=== PATIENT | male | born 1945 | race Caucasian/White ===

== ENCOUNTER 2023-10-27 12:50 | Emergency (ER) | payer MEDICARE, OTHER, SELFPAY ==
--- NOTE | ~2023-10-27 | XR_ITS ---
EXAMINATION: XR shoulder RT min 2V DATE: 10/27/2023 15:29 INDICATION: Right shoulder pain post fall TECHNIQUE: AP internally and externally rotated, AP oblique externally rotated and transscapular Y vi ews of the right shoulder were obtained. COMPARISON: 08/21/2004 FINDINGS: Normal alignment. No fracture. Mild glenohumeral and mild to moderate acromioclavicular osteoarthrit is. Visualized portion of the right lung is clear. Soft tissues are unremarkable. IMPRESSION: Mild right glenohumeral and mild to moderate acromioclavicular osteoarthritis. No acute osseous abnor mality. Reviewed, dictated and finalized at location A. NHOUSE SPECIALIST IMPRESSION: Mild right glenohumeral and mild to moderate acromioclavicular osteoarthritis. No acute osseous abnormality.
[2023-10-27 12:55] VITALS: BP 123/84; PULSE 111; RESP 20; TEMP 36.5; O2SAT 95
--- NOTE | 2023-10-27 15:07 | PC.NURSE ---
agree with triage assessment
--- NOTE | 2023-10-27 15:10 | PC.NURSE ---
pt denies hitting head, states fell on right shoulder on the ice
[2023-10-27 15:45] VITALS: BP 132/89; PULSE 62; RESP 16; TEMP 35.8; O2SAT 100
--- NOTE | 2023-10-27 17:23 | ED.GENADULT ---
HPI - General Adult General Chief complaint: Extremity Injury, Upper Stated complaint: right shoulder pain after fall Time Seen by Provider: 10/27/23 16:47 History of Present Illness HPI narrative: 78-year-old male presenting to the emergency department for evaluation of right shoulder pain after having a ground level fall yesterday. Patient states he slipped on the ice and landed on his shoulder. Patient did not strike his head had no loss of consciousness. Patient states he had decreased range of motion of the right shoulder so he presented to the emergency department for evaluation. Related Data Allergies Allergy/AdvReac Type Severity Reaction Status Date / Time chlorzoxazone Allergy Mild CONVULSION Verified 10/27/23 15:43 Sulfa (Sulfonamide Allergy Mild NODULE ON Verified 10/27/23 15:43 Antibiotics) SPINE Review of Systems Review of Systems: All systems reviewed & are unremarkable except as noted in HPI and below Exam Narrative: APPEARANCE: Well appearing, no pain, no distress, well-nourished. HEAD: normocephalic, atraumatic. EYES: PERRLA/EOMI, conjunctivae clear. NOSE: Normal no drainage NECK: Supple. No adenopathy, no masses. RESPIRATORY: Airway patent, respirations nonlabored. Clear to auscultation bilaterally, no rales, rhonchi, wheezing. CARDIOVASCULAR: Regular rate and rhythm without murmurs rubs or gallops. ABDOMINAL: Soft, nontender, nondistended, normal bowel sounds MUSCULOSKELETAL: Decreased active range of motion of the right shoulder, anterior shoulder tenderness to palpation NEURO: Alert. Cranial nerves II through XII intact. Grossly intact SKIN: Warm, dry. Normal Color Course Course Emergency Course: 78-year-old male presenting ED for evaluation of right shoulder pain x-ray was negative for acute fracture dislocation. Patient exam is consistent with a rotator cuff injury. Patient was placed in a sling and provided outpatient follow-up with orthopedics. Patient was advised to remove the sling when not needed and to do some [id number] exercises. Patient was comfortable with plan for discharge and close follow-up. Vital Signs Vital signs: Vital Signs Oxygen Delivery Room Air 10/27/23 12:53 Temperature 96.5 F L 10/27/23 15:45 Pulse Rate 62 10/27/23 15:45 Respiratory Rate 16 10/27/23 15:45 Blood Pressure 132/89 10/27/23 15:45 Pulse Oximetry 100 10/27/23 15:45 Oxygen Delivery Room Air 10/27/23 12:53 Medical Decision Making Differential Diagnosis Differential Diagnosis: Shoulder fracture, shoulder dislocation, shoulder strain Vital Signs Vital Signs: Vital Signs Oxygen Delivery Room Air 10/27/23 12:53 Temperature 96.5 F L 10/27/23 15:45 Pulse Rate 62 10/27/23 15:45 Respiratory Rate 16 10/27/23 15:45 Blood Pressure 132/89 10/27/23 15:45 Pulse Oximetry 100 10/27/23 15:45 Oxygen Delivery Room Air 10/27/23 12:53 Imaging Data Radiologist's impression: Impressions Shoulder X-Ray 10/27/23 15:32 IMPRESSION: Mild right glenohumeral and mild to moderate acromioclavicular osteoarthritis. No acute osseous abnormality. Discharge Plan Discharge Clinical Impression: Right shoulder strain Patient Disposition: Home, Self-Care Condition: Stable Instructions: Antibiotic Form, How to Use a Sling (ED), Shoulder Pain (ED) Additional Instructions: Tylenol for pain control. Sling as directed for comfort. Have close follow-up with Orthopedics. If you have any worsening symptoms and please call or return to the emergency department. Follow-up/Referrals: Kamille Carter APRN [Primary Care Provider] - Mauro Schulte MD [Physician] -
== END 2023-10-27 17:43 | disposition home or self-care (01) ==
PROVIDERS: Emergency Provider Emergency Medicine; PCP Nurse Practitioner Family
DX: S46.911A Strain of unspecified muscle, fascia and tendon at shoulder and upper arm level, right arm, initial encounter (principal); M19.011 Primary osteoarthritis, right shoulder; W00.0XXA Fall on same level due to ice and snow, initial encounter
CPT/HCPCS: 73030; 99283; A4565

== ENCOUNTER 2024-02-02 08:23 | Outpatient (CLI) | payer MEDICARE, SELFPAY ==
[2024-02-16 14:16] VITALS: BMI 24.2
--- NOTE | 2024-02-16 14:16 | WPDSLEEPSTUD ---
Sleep Study Date of Study: 02/02/24 Ordering Provider: Estefania Saab MD Interpreting Physician: Halle Joseph DO Sleep Study Type: Split Polysomnogram Height: 1.78 m Weight: 76.657 kg Body Mass Index: 24.2 Neck Circumference (inches): 14.75 Speer: 3 Reason for Sleep Study Snoring Sleep History The patient is a 78-year-old male that had a sleep study ordered by his belt cleaner for evaluation of sleep apnea. The patient was previously diagnosed with sleep apnea in 1991 but could not tolerate PAP therapy. The patient denies awakening from sleep short of breath. He denies awakening at night with heartburn, belching or cough. He occasionally snores and is occasionally loud enough that others complain. He rarely has trouble sleeping when he has a cold. He denies waking up gasping for air throughout the night. He occasionally has breathing problems at night observed by himself or others. He denies sweating excessively at night. He denies having heart palpitations or irregular heartbeats during the night. He rarely falls asleep during the day but never while driving. He denies sleep paralysis and cataplexy. He denies having trouble at school or work due to sleepiness. He occasionally experiences vivid dreamlike scenes upon awakening or falling asleep. He denies feeling afraid of going to sleep. He denies having nightmares. He occasionally remembers his dreams. He occasionally has thoughts racing through his mind. He rarely feels sad, depressed or anxious. He denies having muscular tension. He rarely notices parts of his body jerk. He denies kicking during the night. He denies having crawling and aching feelings in his legs but occasionally has leg pain during the night. He rarely grinds his teeth during sleep and never awakens with morning jaw pain. He denies being bothered by pain during the day and denies being awakened by pain during the night. He denies waking up feeling stiff in the morning. He denies waking up with sore or achy muscles. He denies waking up with pain in the neck, spine and other joints. He goes to bed at 11:00 p.m. on both weekdays and weekends. It takes him 30 minutes to fall asleep. He does not typically wake up throughout the night. He wakes up at 7:30 a.m. on both weekdays and weekends. He typically gets 6 hours of sleep per night. He will stay in bed for 20 minutes after waking up in the morning. He currently lives with his step grandchild and great grandson. He denies consuming any caffeinated beverages within 2 hours of bedtime. He denies engaging in physical exercise before bedtime. He will read watch television before falling asleep. He denies taking naps in the afternoon or the evening. He consumes 32 oz of caffeinated beverage per day. He consumes 24 oz of an alcoholic beverage per week. He denies tobacco and recreational drug use. [facility] Past Medical History Medical History Anxiety Atrial fibrillation COPD (chronic obstructive pulmonary disease) Essential (primary) hypertension Heart disease Hyperlipidemia Left groin hernia Osteoarthritis Sleep apnea TIA (transient ischemic attack) Family History Family History Father Diabetes mellitus Hypertension COPD (chronic obstructive pulmonary disease) Mother Diabetes mellitus Social History Social History Social History: , smoked a few cigars, never cigarettes. Smoking status: Never smoker Alcohol intake: current Alcohol use details: Social Substance use: never Substance use type: does not use Do You Feel Safe in your Home?: Yes Lack of Transportation: No Lack of Food: Never True Current Housing: I Have Housing Concerned About Future Housing: No Difficulty Paying Gas/Electric Bills: No Difficulty Paying for Me
== END 2024-02-03 07:07 | disposition home or self-care (01) ==
LOC: ANHCSM 08:24
PROVIDERS: PCP Nurse Practitioner Family; Visit Provider Internal Medicine Critical Care Medicine
DX: G47.33 Obstructive sleep apnea (adult) (pediatric) (principal)
CPT/HCPCS: 95811

== ENCOUNTER 2024-04-27 11:02 | Outpatient (CLI) | payer MEDICARE, SELFPAY ==
[2024-04-27 11:40] LABS: Hematocrit 42.9 % (42.0-52.0); Hemoglobin 14.2 g/dL (14.0-18.0); Mean Corpuscular HGB Conc 33.1 g/dl (32-36); Mean Corpuscular Hemoglobin 31.8 pg (26-34); Mean Corpuscular Volume 96.2 fl (80-100); Mean Platelet Volume 9.5 fl (7.4-10.4); Platelet Count Result 177 k/mm3 (150-375); Red Blood Count 4.46 M/mm3 (4.6-6.20); Red Cell Distribution Width 12.1 % (11.5-14.5); White Blood Count 6.4 K/mm3 (4.5-10.0)
[2024-04-27 11:48] LABS: Anion Gap 5 mmol/L (4-12); Blood Urea Nitrogen 18 mg/dL (9-20); Carbon Dioxide 30 mmol/L (22-30); Chloride 103 mmol/L (98-107); Cholesterol 137 mg/dL (0-200); Estimated Glomerular Filt Rate > 60; Glucose 94 mg/dL (65-110); HDL Direct 39 mg/dL; Potassium 4.4 mmol/L (3.4-5.0); Sodium 138 mmol/L (137-145); Triglycerides 126 mg/dL (<150)
[2024-04-27 11:59] LABS: LDL Cholesterol Direct 64 mg/dL
[2024-05-02 10:29] LABS: PSA, Free 1.1 ng/mL; PSA, Total 2.6 ng/mL (< OR = 4.0); Percent Free Prostate Spec Ag 42 % (calc) (>25)
== END 2024-04-27 11:03 | disposition home or self-care (01) ==
PROVIDERS: PCP Nurse Practitioner Family; Visit Provider Nurse Practitioner Family
DX: G45.9 Transient cerebral ischemic attack, unspecified (principal); I48.91 Unspecified atrial fibrillation; R35.1 Nocturia; E78.2 Mixed hyperlipidemia; I10 Essential (primary) hypertension; I51.9 Heart disease, unspecified; J44.9 Chronic obstructive pulmonary disease, unspecified
CPT/HCPCS: 36415; 80048; 80061; 84153; 84154; 84443; 85027

== ENCOUNTER 2024-07-08 12:53 | Outpatient (CLI) | payer MEDICARE, SELFPAY ==
[2024-07-08 13:37] LABS: Hematocrit 45.7 % (42.0-52.0); Hemoglobin 14.9 g/dL (14.0-18.0); Mean Corpuscular HGB Conc 32.6 g/dl (32-36); Mean Corpuscular Hemoglobin 31.4 pg (26-34); Mean Corpuscular Volume 96.4 fl (80-100); Mean Platelet Volume 9.4 fl (7.4-10.4); Platelet Count Result 208 k/mm3 (150-375); Red Blood Count 4.74 M/mm3 (4.6-6.20); Red Cell Distribution Width 12.5 % (11.5-14.5); White Blood Count 7.4 K/mm3 (4.5-10.0)
[2024-07-08 13:51] LABS: Anion Gap 5 mmol/L (4-12); Blood Urea Nitrogen 15 mg/dL (9-20); Calcium 9.4 mg/dL (8.4-10.2); Carbon Dioxide 29 mmol/L (22-30); Chloride 103 mmol/L (98-107); Cholesterol 242 mg/dL (0-200); Estimated Glomerular Filt Rate > 60; Glucose 104 mg/dL (65-110); HDL Direct 33 mg/dL; Potassium 4.5 mmol/L (3.4-5.0); Sodium 137 mmol/L (137-145); Triglycerides 161 mg/dL (<150)
[2024-07-08 14:01] LABS: LDL Cholesterol Direct 142 mg/dL
== END 2024-07-08 12:54 | disposition home or self-care (01) ==
PROVIDERS: PCP Nurse Practitioner Family; Visit Provider Nurse Practitioner Family
DX: G45.9 Transient cerebral ischemic attack, unspecified (principal); I11.9 Hypertensive heart disease without heart failure; J44.9 Chronic obstructive pulmonary disease, unspecified; I48.91 Unspecified atrial fibrillation; E78.2 Mixed hyperlipidemia
CPT/HCPCS: 36415; 80048; 80061; 84443; 85027

== ENCOUNTER 2025-07-20 13:34 | Outpatient (CLI) | payer MEDICARE, OTHER, SELFPAY ==
--- OUTSIDE RECORDS SUMMARY | 2001-06-29 08:30 | XMS_ITS | Continuity of Care Document ---
Author Organization [facility] Address [address] [facility] [address] [place] [address] Phone Care Team Providers Care Director Medical Writing Name Role Phone Gonzalez OD, Tavares Unavailable Unavailable Advance Directives Directive Yes / No Effective Date File Name No Information Encounters Encounter Description Practice Location Reason(s) For Visit Diagnoses Date Provider Providers Copied on Encounter [facility], [address], [place], [place], [id number], [place] tel:[phone] [facility] No Information Sep-2 5-200 1 Gonzalez OD Tavares. [address] , [address], [place], [address], [place]. tel:[phone] Family History Family Member Type Diagnosis Age At Onset No Information Payers Payer name Insurance type Covered constitution party ID Authoriza tion(s) No Information Social History Type Description Quantity Date Captured Comments Sex Male Smoking Status No Information Chief Complaint And Reason For Visit No Information Reason For Referral Reason For Referral No Information History Of Present Illness Encounter Date Complaint History Of Prese nt Illness No Information Functional Status Date Functional Assessmen t No Information Instructions Date Instruction Additional Infor mation No Information Assessments Type Assessment Date No Information Patient Care Teams Name Effective Dates (start - stop) Status Members No Information
[2025-07-20 14:30] LABS: Hematocrit 41.6 % (42.0-52.0); Hemoglobin 13.6 g/dL (14.0-18.0); Immature Granulocyte Percent A 0.6 % (0-0.5); Lymphocytes Absolute Auto 1.14 K/mm3 (0.9-3.2); Mean Corpuscular HGB Conc 32.7 g/dl (32-36); Mean Corpuscular Hemoglobin 31.3 pg (26-34); Mean Corpuscular Volume 95.6 fl (80-100); Nucleated Red Blood Cells Absolute Auto 0.000 K/mm3 (0.0-0.012); Nucleated Red Blood Cells Perc 0.0 % (0.0-0.2); Platelet Count Result 196 k/mm3 (150-375); Red Blood Count 4.35 M/mm3 (4.6-6.20); White Blood Count 6.9 K/mm3 (4.5-10.0)
[2025-07-20 14:47] LABS: Alanine Aminotransferase 22 U/L (6-50); Albumin Level 4.0 g/dL (3.5-5.1); Alkaline Phosphatase 66 U/L (38-126); Anion Gap 7 mmol/L (4-12); Aspartate Amino Transferase 32 U/L (17-59); Bilirubin,Total 0.8 mg/dL (0.2-1.3); Blood Urea Nitrogen 18 mg/dL (9-20); Calcium 9.2 mg/dL (8.4-10.2); Carbon Dioxide 27 mmol/L (22-30); Chloride 104 mmol/L (98-107); Cholesterol 210 mg/dL (0-200); Estimated Glomerular Filt Rate > 60; Glucose 78 mg/dL (65-110); HDL Direct 29 mg/dL; Potassium 4.4 mmol/L (3.4-5.0); Sodium 138 mmol/L (137-145); Total Protein 7.5 g/dL (6.3-8.2); Triglycerides 124 mg/dL (<150)
--- OUTSIDE RECORDS SUMMARY | 2025-07-20 15:32 | XMS_ITS | Clinical Summary ---
Author Organization [facility] Address [address] [place] [address] Care Team Providers Care Java Development Manager Name Role Phone Nicol Karimi MD Primary Care Provider Social History Tobacco Use Types Packs/Day Years Used Date Smoking Tobacco: Never Assessed Sex and Gender Information Value Date Recorded Sex Assigned at Not on file Legal Sex Male 4:07 PM CDT Gender Identity Not on file Sexual Orientation Not on file Plan of Treatment Health Maintenance Due Date Last Done Comments DTaP, Tdap and Td Vaccines ( 1 - Tdap) 1962 Pneumococcal Vaccine: 50+ Ye ars (1 of 1 - PCV) 1993 Zoster Vaccines (1 of 2) 1993 RSV Immunization or 60+ Years (1 - 1-dose 75+ series) 2018 COVID-19 Vaccine ( - 2023-2 5 season) 2025 Influenza Adult (#1) 2025 Meningococcal B Vaccine Aged Out No l onger eligible based on patient's age to complete this topic Meningococcal Vaccine Aged Out No gopi link eligible based on patient's age to complete this topic RSV Immunizations Under 20 Months Aged Out No longer eligible based on patient's age to complete this topic Care Teams Java Development Manager Relationship Specialty Start Date End Date Nicol Karimi MD [address], [facility] [place], [place] [address] PCP - General 10/16/15
--- OUTSIDE RECORDS SUMMARY | 2025-07-20 15:32 | XMS_ITS | Patient Health Record ---
Author Organization [facility] Address [address] [place] [address] Care Team Providers Care Manufacturing Specialist Name Role Phone Feliberto Leon Primary Care Provider Reason For Referral No Information Immunizations Vaccine Route Administration Date Status Comme nts COVID-19 Moderna 1ST IM Intramuscular 11/15/2020 Administered EUA date 0. Screening reviewed and consent signed. Patient tolerated well. COVID-19 Moderna 2nd IM Intramuscular 12/13/2020 Administered EUA date 0. Screening reviewed and consent signed. Patient tolerated well. Plan Of Treatment No Information
--- OUTSIDE RECORDS SUMMARY | 2025-07-20 15:32 | XMS_ITS | Encounter Summary ---
Author Organization [facility] Care Team Providers Care Farm Demonstrator Name Role Phone Kamille Carter DOMESTIC LAUNDRY WORKER Primary Care Provider + Daryl Matias MD Unavailable [phone] Trenton Lipscomb DO Unavailable [phone] Encounter Details Date Type Department Care Team (Latest Contact Info) Description 09/20/2018 Orders Only [facility] Provider, MD Shahla [address] [place] [address] Social History Tobacco Use Types Packs/Day Years Used Date Smoking Tobacco: Never Assessed Sex and Gender Information Value Date Recorded Sex Assigned at Not on file Legal Sex Male 6:44 PM ADULT NEUROLOGIST Gender Identity Not on file Sexual Orientation Not on file documented as of this encounter Plan of Treatment Not on file documented as of this encounter Procedures Procedure Name Priority Date/Time Associated Diagnosis Comments SCAN - LABS 09/22/2018 12:00 AM ADULT NEUROLOGIST documented in this encounter Results * SCAN - LABS (09/22/2018 12:00 AM ADULT NEUROLOGIST) Narrative 09/22/2018 12:00 AM ADULT NEUROLOGIST Ordered by an unspecified provider. us Historical Provider Final Res ult documented in this encounter Visit Diagnoses Not on filedocumented in this encounter Additional Health Concerns Infection Onset Date Last Indicated Resolved Time COVID: Suspected 11/09/2024 11/09/2024 11/09/2024 7:13 AM ADULT NEUROLOGIST RSV, droplet 11/09/2024 11/09/2024 11/16/2024 3:07 AM ADULT NEUROLOGIST documented as of this encounter Care Teams Farm Demonstrator Relationship Specialty Start Date End Date Kamille Carter NP PCP - General 11/22/20 Daryl Matias MD Consulting Physician Cardiovascular Disease 06/03/22 Trenton Lipscomb DO [address] [place] [id number] Consulting Physician General Surgery 06/03/22 documented as of this encounter
--- OUTSIDE RECORDS SUMMARY | 2025-07-20 15:32 | XMS_ITS | Encounter Summary ---
Author Organization [facility] Address [address] [place] [address] Care Team Providers Care Crew Caller Name Role Phone EmmaKamille Yesenia VALERA Primary Care Provider + Daryl Matias MD Unavailable Trenton Lipscomb DO Unavailable [phone] Encounter Details Date Type Department Care Team (Late st Contact Info) Description 07/08/2022 Telephone [facility] Cardiac Coin Machine Collector Supervisor [address] [place] [address] Debi Crane, ANICETO Social History Tobacco Use Types Packs/Day Years Used Date Smoking Tobacco: Never Smokeless Tobacco: Former Chew Quit: 2005 Comments:socially chewed tob acco AUDIT-C Answer Date Recorded Q1: How often do you have a drink containing alc ohol? Never 05/22/2022 Average Number of Drinks Not on file 022 Q3: How often do you have si x or more drinks on one occasion? Never 05/22/2022 Sex and Gender Information Value Date Recorded Sex Assigned at Not on file Legal Sex Male 6:44 PM RESIDENT SERVICES DIRECTOR Gender Identity Not on file Sexual Orientation Not on file documented as of this encounter Plan of Treatment Not on file documented as of this encounter Visit Diagnoses Not on filedocumented in this encounter Additional Health Concerns Infection Onset Date Last Indicated Resolved Time COVID: Suspected 11/09/2024 11/09/2024 11/09/2024 7:13 AM RESIDENT SERVICES DIRECTOR RSV, droplet 11/09/2024 11/09/2024 11/16/2024 3:07 AM RESIDENT SERVICES DIRECTOR documented as of this encounter Care Teams Crew Caller Relationship Specialty Start Date End Date Kamille Carter NP PCP - General 11/22/20 Daryl Matias MD Consulting Physician Cardiovascular Disease 06/03/22 Trenton Lipscomb DO [address] [place] [id number] Consulting Physician General Surgery 06/03/22 documented as of this encounter
--- OUTSIDE RECORDS SUMMARY | 2025-07-20 15:33 | XMS_ITS | Clinical Summary ---
Author Organization [facility] Office Center Address [address] [place] [address] Care Team Providers Care Staff Certified Nurse Midwife Name Role Phone Kamille Carter NP Primary Care Provider + Daryl Matias MD Unavailable [phone] Trenton Lipscomb DO Unavailable [phone] Allergies Active Allergy Reactions Criticality Noted Date Comments Amoxicillin-Pot Clavulanate Itching,Edema Medium 04/03/2022 Patient states doesn't think he is allergic to this medication Sulfa (Sulfonamide Antibiotics) Swelling,Hives High 11/22/2020 Swelling Medications acidophilus-pecti n, citrus 100 million cell-10 mg capsule Take 1 capsule by mouth nurse aide evaluator before breakfast 5 Active ALPRAZolam (XANAX) 1 mg tablet Take 1 tablet (1 mg total) by mouth nightly as needed Active emlivgioukff-Ou-d trevor-minerals tablet Take 1 capsule by mouth nurse aide evaluator before breakfast 5 Active arginine, L-arginine, 500 mg capsule Take 1 capsule (500 mg total) by mouth nurse aide evaluator before breakfast Active docusate sodium (COLACE) 100 mg capsuleIndication s:constipation Take 1 capsule (100 mg total) by mouth 2 (two) times a day 30 capsule 2 Active rosuvastatin (CRESTOR) 20 mg tablet Take 1 tablet (20 mg total) by mouth daily Active theophylline (THEODUR) 300 mg 12 hr tablet Take 1 tablet (300 mg total) by mouth 2 (two) times a day 5 Active hydroCHLOROthiazi de (HYDRODIURIL) 12.5 mg tablet Take 1 tablet (12.5 mg total) by mouth daily 3 Active furosemide (LASIX) 20 mg tablet Take 1 tablet (20 mg total) by mouth daily 90 tablet 2 4 Active albuterol HFA (PROVENTIL HFA,VENTOLIN HFA,PROAIR HFA) 90 mcg/actuation inhaler Inhale 2 puffs every 4 (four) hours as needed for wheezing 1 each 5 11/09/19 26 Active doxycycline (VIBRAMYCIN) 100 mg capsule Take 1 tablet/capsule (100 mg total) by mouth 2 (two) times a day 14 tablet/capsu le 5 Active warfarin (COUMADIN) 2 mg tabletIndications :Paroxysmal atrial fibrillation (HCC),Essential (primary) hypertension,Mixe d hyperlipidemia,No nrheumatic mitral valve insufficiency,Non rheumatic aortic valve insufficiency,Non rheumatic mitral valve regurgitation,Obs tructive sleep apnea Take 1 tablet (2 mg total) by mouth daily 90 tablet 3 5 Active warfarin (COUMADIN) 3 mg tabletIndications :Paroxysmal atrial fibrillation (HCC),Essential (primary) hypertension,Mixe d hyperlipidemia,No nrheumatic mitral valve insufficiency,Non rheumatic aortic valve insufficiency,Non rheumatic mitral valve regurgitation,Obs tructive sleep apnea Take 1 tablet (3 mg total) by mouth daily 90 tablet 1 5 Active metoprolol XL (TOPROL-XL) 50 mg extended release tablet TAKE 1 TABLET(50 MG) BY MOUTH DAILY 90 tablet 3 5 Active Active Problems Problem Noted Date Diagnosed Date Benign prostatic hyperplasia without lower urinary tract symptoms 02/24/2025 Enlarged prostate 04/11/2024 Blood in urine 04/11/2024 Bradycardia following surgery 04/11/2024 Dizziness due to old head injury 04/11/2024 Dysuria 04/11/2024 Sinusitis 04/11/2024 Unexplained weight loss 04/11/2024 Upper respiratory infection 04/11/2024 Urinary tract infectious disease 04/11/2024 TIA (transient ischemic attack) 11/19/2023 COPD (chronic obstructive pulmonary disease) 10/2023 Nonrheumatic mitral valve insufficiency 10/05/19 24 Paroxysmal atrial fibrillation 10/05/2023 Unspecified hearing loss, unspecified ear 2023 Unil inguinal hernia, w/o obst or gangr, not spc f as recur 10/05/2023 Encounter for therapeutic drug level monitoring 10/05/2023 Essential (primary) hypertension 10/05/2023 History of falling 10/05/2023 Hyperlipidemia, unspecified 10/05/2023 terminal system operator (current) use of anticoagulants 2023 Obstructive sleep apnea (adult) (pediatric) 10/2023 Personal history of nicotine dependence 10/05/19 24 Essential hypertension 07/27/2023 Nonrheumatic mitral valve regurgitation 07/27/20 23 Nonrheumatic aortic valve insufficiency 07/27/20 23 Obstructive sleep apnea 07/27/2023 Essential hypertension 04/30/2023 Stroke-like symptoms 09/07/2022 Atrial fibrillation 06/11/2022 A-fib 06/02/2022 Assessment & Plan (06/02/2022 4:38 PM CDT): Telemetry Cardiology consultation Serial cardiac enzymes Echocardiogram Metoprolol 25 mg p.o. b.i.d. Metoprolol 2.5 mg IV q.6 hours p.r.n. Anticoagulation currently held in light of postoperative state Assessment & Plan (06/02/2022 4:31 PM CDT): With slight rapid ventricular response improved now, agree with metoprolol was switched to oral metoprolol and start on Eliquis Anxiety 08/10/2017 Enlarged prostate 06/11/2017 Chronic obstructive lung disease 06/11/2017 Overview (04/11/2024): PFT results January 2018. Hyperlipidemia 06/11/2017 Chronic obstructive pulmonary disease 06/11/2017 Overview (11/10/2024): PFT results January 2018. Benign prostatic hyperplasia without lower urinary tract symptoms 06/11/2017 Hyperlipemia Assessment & Plan (06/02/2022 4:38 PM CDT): Fasting lipid panel pending for a.m. Adjustments to home regimen to be coordinated Asthma Assessment & Plan (06/02/2022 4:39 PM CDT): Stable Home regimen of theophylline currently held Inguinal hernia Overview (06/02/2022): RIGHT Assessment & Plan (06/02/2022 4:43 PM CDT): Surgical site in right inguinal region intact Pain management p.r.n. Follow-up with general surgery Postoperative management of surgical site per General surgery Encounters Date Type Department Care Team Description 07/11/2025 Anticoagulation Visit [facility] [address] [place] [phone] Beatrice Kothari MA Paroxysmal atrial fibrillation (HCC) (Primary Dx) 07/11/[address] [address] Yobani Haynes MD 07/10/2025 8:04 PM CDT - 07/10/2025 11:05 PM CDT Emergency [facility] Emergency Department [facility] [place] [address] Charity Jean MD Arthritis of left shoulder (Primary Dx); TIA (transient ischemic attack) Discharge Disposition: Discharge to home or self care 07/06/2025 Anticoagulation Telephone Call [address] [phone] Yobani Haynes MD Paroxysmal atrial fibrillation (HCC) (Primary Dx) 06/23/2025 Anticoagulation Telephone Call [address] [address] Yobani Haynes MD Paroxysmal atrial fibrillation (HCC) (Primary Dx) 05/24/2025 Anticoagulation Visit [address] [address] Beatrice Kothari MA Paroxysmal atrial fibrillation (HCC) (Primary Dx) 04/28/2025 Anticoagulation Visit [facility] [address] [facility] [address] [place] [address] Beatirce Kothari MA Paroxysmal atrial fibrillation (HCC) (Primary Dx) from Last 3 Months Surgical History Surgery Date Site/Laterality Comments CARDIAC CATHETERIZATION 10/05/1992 - 10/04/[address] ANTHONY COLONOSCOPY 10/05/2010 - 10/04/2011 KNEE ARTHROSCOPY W/ ACL RECONSTRUCTION 10/05/1989 - 10/04/1990 Left CYSTOSTOMY W/ BLADDER BIOPSY 05/14/2015 CYSTO WITH TRANSRECTION OF BLADDER TUMOR AND BX Medical History Medical History Date Comments Sleep apnea DX 20 YRS AGO RE FUSED MACHINE Lung disease COPD TAKE THEOPH YLLINE ONLY NO INHALERS Numbness and tingling fingers an d toes from frostbite years ago in worse in winter states Hyperlipemia HL (hearing loss) Teeth missing WEARS UPPER PART IAL Inguinal hernia RIGHT History of elevated PSA 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 Utilities Answer Date Recorded In the past 12 months has [employer], gas, oil, or water [employer] threatened to shut off services in your home? No 11/19/2023 Social Connection and Isolation Panel Answer Date Recorded In a typical week, how many times do you talk on the phone with family, friends, or neighbors? More than three times a week 11/19/2023 How often do you get togethe r with friends or relatives? More than three times a week 11/19/2023 How often do you attend chur ch or restoration services? Never 11/19/2023 Do you belong to any clubs o r organizations such as restoration groups, unions, fraternal or athletic groups, or school groups? No 11/19/2023 How often do you attend meet ings of the clubs or organizations you belong to? Never 11/19/2023 Are you , , di vorced, , never , or living with a partner? 11/19/2023 AUDIT-C Answer Date Recorded Q1: How often do you have a drink containing alc ohol? Never 05/22/2022 Average Number of Drinks Not on file 022 Q3: How often do you have si x or more drinks on one occasion? Never 05/22/2022 Overall Financial Resource Strain (CARDIA) Answe r Date Recorded How hard is it for you to pa y for the very basics like food, housing, medical care, and heating? Not very hard 11/19/2023 Hunger Vital Sign Answer Date Recorded Within the past 12 months, y ou worried that your food would run out before you got the money to buy more. Never true 11/19/19 24 Within the past 12 months, t he food you bought just didn't last and you didn't have money to get more. Never true 11/19/2023 PRAPARE - Transportation Answer Date Re corded In the past 12 months, has l ack of transportation kept you from medical appointments or from getting medications? No 11/05 In the past 12 months, has l ack of transportation kept you from meetings, work, or from getting things needed for daily living? No 11/19/2023 Housing Stability Vital Sign Answer Jose e Recorded In the last 12 months, was t here a time when you were not able to pay the mortgage or rent on time? No 11/19/2023 In the last 12 months, how many places have you lived? 1 11/19/2023 In the last 12 months, was t here a time when you did not have a steady place to sleep or slept in a detention (including now)? No 11/19/2023 Personal Safety Answer Date Recorded Have you ever been in or are you currently in a harmful physical or emotional relationship or is someone making you feel afraid or unsafe? 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 Gender Identity Not on file Sexual Orientation Not on file Obstetrics History Last Filed Vital Signs Vital Sign Reading Time Taken Comments Blood Pressure 144/95 07/10/2025 10:55 PM CDT Pulse 73 07/10/2025 10:55 PM CDT Temperature 36.6 C (97.9 F) 07/10/2025 8:15 PM CDT Respiratory Rate 20 07/10/2025 10:55 PM CDT Oxygen Saturation 97% 07/10/2025 10:55 PM CDT Inhaled Oxygen Concentration - - Weight 76.3 kg (168 lb 3.4 oz) 07/10/2025 5:45 P M CDT Height 177.8 cm (5' 10) 07/10/2025 5:45 PM CDT Body Mass Index 24.14 07/10/2025 5:45 PM CDT Plan of Treatment Health Maintenance Due Date Last Done Comments Depression Screening 1945 Hepatitis B Screening 1961 Zoster Vaccine (1 of 2) 1993 Well Visit 65+ 2008 Fall Risk Assessment 11/21/2024 11/21/2023 Covid-19 Vaccine ( - 2024-2 6 season) 2025 08/12/2021, 12/13/2020, 11/15/2020 Influenza Vaccine (#1) 2025 , 08/14/2020, 09/06/2018, Additional history exists DTaP/Tdap/Td Vaccine (2 - Td or Tdap) 12/09/2026 12/09/2016 Pneumococcal vaccine 65+ Completed 12/09/2017, 10/2013 Medical Devices Implanted Type Area Director Of Business Operations Device Identifier Shelf Expiration Date Model / Serial / Lot [employer]/C R Bard Bard Marlex 6x3in Monofilament Gold Standard Flat Sheet Groin [id number] - [id number] Implanted:Qty: 1 on 06/02/2022 by Trenton Lipscomb, at [facility] Right: Groin [employer] Bard 05/01/2026 [id number] / / [id number] Procedures Procedure Name Priority Date/Time Associated Diagnosis Comments CT HEAD WO CONTRAST ED 07/10/2025 9 :38 PM CDT XR SHOULDER LEFT 2 OR MORE VIEWS ED 07/10/2025 9:08 PM CDT PROTIME-INR STAT 07/10/2025 6:56 PM CDT CRP (ACUTE PHASE) STAT 07/10/2025 5:5 1 PM CDT ERYTHROCYTE SEDIMENTATION RATE STAT 07/10/2025 5:51 PM CDT EGFR STAT 07/10/2025 5:51 PM CDT DIFFERENTIAL AUTO STAT 07/10/2025 5:5 1 PM CDT COMPREHENSIVE METABOLIC PANEL STAT 07/10/2025 5:51 PM CDT CBC WITH AUTO DIFFERENTIAL STAT 07/10/2025 5:51 PM CDT PROTIME-INR Routine 07/06/2025 PROTIME-INR Routine 06/22/2025 PROTIME-INR Routine 05/23/2025 PROTIME-INR Routine 04/25/2025 from Last 3 Months Results * CT Head WO Contrast (07/10/2025 9:38 PM CDT) Anatomical Region Laterality Modality Head and Neck N/A Computed Tomogra phy 07/10/2025 9:43 PM CDT Narrative 07/10/2025 9:46 PM CDT EXAM DESCRIPTION: CT HEAD WO CONTRAST REASON FOR STUDY: Transient ischemic attack (TIA) Pt came into ED for worsening arthritis pain that began this AM. Pt endorses worsening pain to hands, bilateral legs, and upper arms. Pt reports generalized weakness x1 month TECHNIQUE: Axial images acquired through the brain without intravenous contrast. Images stored on PACS. Automated exposure control was used as a dose optimization technique for this examination. COMPARISON: 11/19/2023, FINDINGS: BRAIN: No hemorrhage, edema or mass effect. No recent infarct. Nonspecific periventricular and subcortical white matter hypoattenuation which can be seen as sequela of chronic small vessel ischemic disease. There is age-appropriate cerebral volume loss with unchanged dilatation of the ventricular system. No acute intraventricular hemorrhage. Basal cisterns are patent. No midline shift. EXTRA-AXIAL SPACES: No fluid collections. No masses. CALVARIUM: No fracture. SINUSES/MASTOIDS: Mucosal thickening of the ethmoid air cells. Otherwise, no fluid or mucosal thickening. ORBITS: No significant abnormality. OTHER: No other significant abnormality. IMPRESSION: No acute intracranial findings. THIS IS AN ELECTRONICALLY VERIFIED FINAL REPORT 07/10/2025 9:46 PM - Electronically signed by Hubert Arredondo M.D. AT: AT Report ID: [id number] Reading Location: [id number] Procedure Note Hubert Arredondo MD - 07/10/2025 EXAM DESCRIPTION: CT HEAD WO CONTRAST REASON FOR STUDY: Transient ischemic attack (TIA) Pt came into ED for worsening arthritis pain that began this AM. Ptendorses worsening pain to hands, bilateral legs, and upper arms. Pt reports generalized weakness x1 month TECHNIQUE: Axial images acquired through the brain without intravenous contrast. Images stored on PACS. Automated exposure control was used asa dose optimization technique for this examination. COMPARISON: 11/19/2023, FINDINGS: BRAIN: No hemorrhage, edema or mass effect. No recent infarct. Nonspecific periventricular and subcortical white matter hypoattenuationwhich can be seen as sequela of chronic small vessel ischemic disease. There is age-appropriate cerebral volume loss with unchanged dilatation of the ventricular system. No acute intraventricular hemorrhage. Basal cisternsare patent. No midline shift. EXTRA-AXIAL SPACES: No fluid collections. No masses. CALVARIUM: No fracture. SINUSES/MASTOIDS: Mucosal thickening of the ethmoid air cells.Otherwise, no fluid or mucosal thickening. ORBITS: No significant abnormality. OTHER: No other significant abnormality. IMPRESSION: No acute intracranial findings. THIS IS AN ELECTRONICALLY VERIFIED FINAL REPORT 07/10/2025 9:46 PM - Electronically signed by Hubert Arredondo M.D. AT: AT Report ID: [id number] Reading Location: [id number] Charity Jean MD IMG CT PROCEDURES Final R esult * XR Shoulder Left 2 or More Views (07/10/2025 9:08 PM CDT) Anatomical Region Laterality Modality Upper Extremities, Shoulder Left Comp uted Radiography 07/10/2025 9:09 PM CDT Narrative 07/10/2025 9:11 PM CDT EXAM DESCRIPTION: XR SHOULDER LEFT 2 OR MORE VIEWS REASON FOR STUDY: pain No injury. Pt came into ED for worsening arthritis pain that began this AM. No relief with tylenol. TECHNIQUE: 3 radiographic view(s) of the left shoulder . COMPARISON: 11/09/2024 FINDINGS: The alignment is normal. There is no fracture. Moderate acromioclavicular joint osteoarthritis. The glenohumeral joint space is within normal limits. Mild osteopenia. No aggressive bone lesions. Mild left basilar atelectasis. IMPRESSION: No acute osseous abnormality. Moderate left acromioclavicular joint osteoarthritis. THIS IS AN ELECTRONICALLY VERIFIED FINAL REPORT 07/10/2025 9:11 PM - Electronically signed by Hubert Arredondo M.D. AT: AT Report ID: [id number] Reading Location: [id number] Procedure Note Hubert Arredondo MD - 07/10/2025 EXAM DESCRIPTION: XR SHOULDER LEFT 2 OR MORE VIEWS REASON FOR STUDY: pain No injury. Pt came into ED for worsening arthritis pain that began thisAM. No relief with tylenol. TECHNIQUE: 3 radiographic view(s) of the left shoulder . COMPARISON: 11/09/2024 FINDINGS: The alignment is normal. There is no fracture. Moderate acromioclavicular joint osteoarthritis. The glenohumeral joint space is within normal limits. Mild osteopenia. No aggressive bone lesions. Mild left basilar atelectasis. IMPRESSION: No acute osseous abnormality. Moderate leftacromioclavicular joint osteoarthritis. THIS IS AN ELECTRONICALLY VERIFIED FINAL REPORT 07/10/2025 9:11 PM - Electronically signed by Hubert Arredondo M.D. AT: AT Report ID: [id number] Reading Location: [id number] Charity Jean MD IMG XR PROCEDURES Final R esult * (ABNORMAL) Protime-INR (07/10/2025 6:56 PM CDT) PT 40.1(H) 12.0 - 14.6 sec Comment:Testing performed by : [address] [id number] INR 4.2(H) 0.9 - 1.2 MIGDALIA TORIBIO Comment: Interpretive data Oral anticoagulant therapeutic ranges: Venous thromboembolism prophylaxis or treatment: 2.0-3.0 CARDIOLOGY Standard range: 2.0-3.0 High-intensity range: 2.5-3.5 Refer to indication-specific guidelines for appropriate target ranges for prosthetic heart valve replacement. Current interpretive data was last revised on 2019. Testing performed by: [address] [id number] Blood 07/10/2025 6:56 PM CDT 07/10/2025 7:01 PM CDT Charity Jean MD LAB BLOOD ORDERABLES Minerva l Result [facility] [address] [facility] [place] [address] * eGFR (07/10/2025 5:51 PM CDT) eGFR 85 >=60 mL/min/1. 73 m2 Comment: Interpretive Data Reference Interval Normal >/= 90 mL/min/1.73m2 Mildly decreased* 60 - 89 mL/min/1.73m2 Mildly to moderately decreased 45 - 59 mL/min/1.73m2 Moderately to severely decreased 30 - 44 mL/min/1.73m2 Severely decreased 15 - 29 mL/min/1.73m2 Kidney Failure < 15 mL/min/1.73m2 *Relative to young adult level Estimated glomerular filtration rate is determined by the 2020 CKD-EPI equation recommended by the National Kidney Foundation (A Unifying Approach to GFR Estimation: Recommendations of the NKF-ASK Task Force on Reassessing the Inclusion of Race in Diagnosing Kidney Disease, JASN 2020). The CKD-EPI equation should not be used for patients with unstable renal function and has not been validated in children and those over 70. Current interpretive data was last reviewed 2021. Testing performed by: [address] [address] Blood 07/10/2025 5:51 PM CDT 07/10/2025 6:00 PM CDT us Charity Jean MD LAB BLOOD ORDERABLES Minerva vargas Result [place] [id number] [facility] [place] [address] * (ABNORMAL) Differential, auto (07/10/2025 5:51 PM CDT) Neutrophil abs 6.06 1.50 - 6.50 K/cumm Comment:Testing performed by : [address] [address] Imm gran abs 0.03 0.00 - 0.10 K/cumm MIGDALIA Comment:Testing performed by : [address] [address] Lymphocyte abs 1.23 0.80 - 3.30 K/cumm MIGDALIA Comment:Testing performed by : [address] [address] Monocyte abs 1.01(H) 0.20 - 0.80 K/cumm MIGDALIA Comment:Testing performed by : [address] [address] Eosinophil abs 0.18 0.00 - 0.50 K/cumm MIGDALIA Comment:Testing performed by : [address] [address] Basophil abs 0.04 0.00 - 0.10 K/cumm MIGDALIA Comment:Testing performed by : [address] [address] Neutrophil pct 70.8 % [facility] Comment: Interpretive Data Percent cell count reference ranges are not reported, since discordance with absolute values may lead to misinterpretation of CBC data. Current Interpretive Data was last revised on 2018. Testing performed by: [address] [address] Imm gran pct 0.4 % [facility] Comment: Interpretive Data Percent cell count reference ranges are not reported, since discordance with absolute values may lead to misinterpretation of CBC data. Current Interpretive Data was last revised on 2018. Testing performed by: [address] [address] Lymphocyte pct 14.4 % [facility] Comment: Interpretive Data Percent cell count reference ranges are not reported, since discordance with absolute values may lead to misinterpretation of CBC data. Current Interpretive Data was last revised on 2018. Testing performed by: [address] [address] Monocyte pct 11.8 % [facility] Comment: Interpretive Data Percent cell count reference ranges are not reported, since discordance with absolute values may lead to misinterpretation of CBC data. Current Interpretive Data was last revised on 2018. Testing performed by: [address] [address] Eosinophil pct 2.1 % [facility] Comment: Interpretive Data Percent cell count reference ranges are not reported, since discordance with absolute values may lead to misinterpretation of CBC data. Current Interpretive Data was last revised on 2018. Testing performed by: [address] [address] Basophil pct 0.5 % [facility] Comment: Interpretive Data Percent cell count reference ranges are not reported, since discordance with absolute values may lead to misinterpretation of CBC data. Current Interpretive Data was last revised on 2018. Testing performed by: [address] [address] Blood 07/10/2025 5:51 PM CDT 07/10/2025 6:00 PM CDT Charity Jean MD LAB BLOOD ORDERABLES Minerva vargas Result [facility] [address] [facility] [facility] [place] [address] * CBC with auto differential (07/10/2025 5:51 PM CDT) WBC 8.55 3.80 - 9.90 K/cumm Comment:Testing performed by : [address] [address] Hgb 14.7 13.0 - 17.5 g/dL MIGDALIA Comment:Testing performed by : [address] [address] Hct 44.6 38.9 - 50.3 % MIGDALIA Comment:Testing performed by : [address] [address] Plt 201 150 - 400 K/cumm MIGDALIA Comment:Testing performed by : [address] [address] MPV 9.4 9.1 - 12.3 fL MIGDALIA Comment:Testing performed by : [address] [address] RBC 4.73 4.30 - 5.80 M/cumm MIGDALIA Comment:Testing performed by : [address] [address] MCV 94.3 81.3 - 96.4 fL MIGDALIA Comment:Testing performed by : [address] [address] MCH 31.1 27.1 - 33.3 pg MIGDALIA Comment:Testing performed by : [address] [address] MCHC 33.0 32.3 - 35.7 g/dL MIGDALIA Comment:Testing performed by : [address] [address] RDW CV 13.0 11.1 - 14.9 % MIGDALIA TORIBIO Comment:Testing performed by : [address] [address] RDW SD 45.0 35.7 - 48.1 fL MIGDALIA TORIBIO Comment:Testing performed by : [address] [address] NRBC abs 0.00 0.00 - 0.01 K/cumm MIGDALIA Comment:Testing performed by : [address] [address] Blood 07/10/2025 5:51 PM CDT 07/10/2025 6:00 PM CDT us Charity Jean MD LAB BLOOD ORDERABLES Minerva l Result Performing Organization Address [facility] Co de Phone Number [address] [place] [address] * (ABNORMAL) Erythrocyte sedimentation rate (07/10/2025 5:51 PM CDT) Pathologist [facility] Erythrocyte sedimentation rate 32(H) 1 - 20 mm/hr Comment:Testing performed by : [address], [id number] Blood 07/10/2025 5:51 PM CDT 07/10/2025 6:00 PM CDT Charity Jean MD LAB BLOOD ORDERABLES Minerva l Result Performing Organization Address City/[facility] Co de Phone Number [address] [address] * (ABNORMAL) CRP (acute phase) (07/10/2025 5:51 PM CDT) Pathologist [facility] CRP 19.5(H) <=10.0 mg/L Comment:Testing performed by : [address] [address] Blood 07/10/2025 5:51 PM CDT 07/10/2025 6:00 PM CDT us Charity Jean MD LAB BLOOD ORDERABLES Minerva vargas Result M[facility] [address] [facility] [place] [address] * Comprehensive metabolic panel (07/10/2025 5:51 PM CDT) Sodium 138 135 - 145 mmol/L Comment:Testing performed by : [address] [address] Potassium, pl 4.2 3.3 - 4.9 mmol/L [place] Comment:Testing performed by : [address] [address] Chloride 103 97 - 110 mmol/L [place] Comment:Testing performed by : [address] [address] CO2 23 22 - 32 mmol/L [place] Comment:Testing performed by : [address] [address] Anion gap 12 2 - 15 mmol/L [place] Comment:Testing performed by : [address] [address] BUN 11 6 - 25 mg/dL [place] Comment:Testing performed by : [address] [address] Creatinine 0.90 0.80 - 1.30 mg/dL [place] Comment:Testing performed by : [address] [address] Glucose 94 70 - 199 mg/dL [place] Comment: Interpretive Data Fasting glucose >/= 126 mg/dl is diagnostic for diabetes. Fasting is defined as no caloric intake for at least 8 hours. Fasting glucose between 100 mg/dl to 125 mg/dl is diagnostic of prediabetes. In a patient with classic symptoms of hyperglycemia or hyperglycemic crisis, a random glucose >/= 200 mg/dl is diagnostic for diabetes. In the absence of unequivocal hyperglycemia, results should be confirmed by repeat testing. The classification and Diagnosis of Diabetes Diabetes Care 202; 46: S19-S40. Current interpretive data was last revised 2022. Testing performed by: [facility], [address] [place] [address]., [id number] Calcium 9.5 8.5 - 10.3 mg/dL [place] Comment:Testing performed by : [address] [address] Bilirubin, total 0.4 0.1 - 1.2 mg/dL [facility] Comment:Testing performed by : [address] [address] Protein, pl 7.5 6.5 - 8.5 g/dL [facility] Comment:Testing performed by : [address], [address] Albumin 4.3 3.5 - 5.0 g/dL [place] Comment:Testing performed by : [address] [address] Alk phos 81 40 - 130 Units/L [place] Comment:Testing performed by : [address] [address] ALT 18 7 - 55 Units/L [facility] Comment:Testing performed by : [address] [address] AST 20 10 - 50 Units/L [facility] Comment:Testing performed by : [address], [address] Blood 07/10/2025 5:51 PM CDT 07/10/2025 6:00 PM CDT Charity Jean MD LAB BLOOD ORDERABLES Minerva l Result Performing Organization Address City/[facility]/ZIP Co de Phone Number [facility] [address] [facility] [place] [address] * (ABNORMAL) Protime-INR (07/06/2025) INR 3.30(A) 0.90 - 1.10 EXTERNAL LAB Blood Shahla Sanz MD LAB BLOOD ORDERABLES Minerva l Result EXTERNAL LAB * (ABNORMAL) Protime-INR (06/22/2025) INR 1.80(A) 0.90 - 1.10 EXTERNAL LAB Blood Historical Provider MD LAB BLOOD ORDERABLES Minerva l Result EXTERNAL LAB * (ABNORMAL) Protime-INR (05/23/2025) INR 3.80(A) 0.90 - 1.10 EXTERNAL LAB Blood Historical Provider MD LAB BLOOD ORDERABLES Minerva l Result EXTERNAL LAB * (ABNORMAL) Protime-INR (04/25/2025) INR 2.40(A) 0.90 - 1.10 EXTERNAL LAB Blood Historical Provider MD LAB BLOOD ORDERABLES Minerva l Result EXTERNAL LAB from Last 3 Months Insurance MEDICARE [facility] Address: [address] [address] [facility] MEDICARE [facility] MEDICARE Advance Directives For more information, please contact: [phone] * Full Code (Latest Code Status on File) Date Activated Date Inactivated Comments 11/19/2023 11:09 AM 11/21/2023 6:01 PM * Full Code Date Activated Date Inactivated Comments 09/09/2022 1:35 AM 09/09/2022 5:31 PM * Full Code Date Activated Date Inactivated Comments 06/02/2022 1:23 PM 06/03/2022 11:06 PM Care Teams Staff Certified Nurse Midwife Relationship Specialty Start Date End Date Kamille Carter NP PCP - General 11/22/20 Daryl Matias MD Consulting Physician Cardiovascular Disease 06/03/22 Trenton Lipscomb DO [address] [place] [id number] Consulting Physician General Surgery 06/03/22
[2025-07-20 18:02] LABS: Thyroid Stimulating Hormone Reflex 1.890 uIU/mL (0.465-4.68)
[2025-07-20 19:23] LABS: Prostate Specific Antigen 3.5 ng/mL (< OR = 4.0)
[2025-07-20 19:55] LABS: Hemoglobin A1C 5.4 % (<5.7)
== END 2025-07-20 13:35 | disposition home or self-care (01) ==
PROVIDERS: PCP Nurse Practitioner Family; Visit Provider Nurse Practitioner Family
DX: Z13.1 Encounter for screening for diabetes mellitus (principal); E78.5 Hyperlipidemia, unspecified; I10 Essential (primary) hypertension; F41.9 Anxiety disorder, unspecified; R35.1 Nocturia; Z13.29 Encounter for screening for other suspected endocrine disorder; Z13.0 Encounter for screening for diseases of the blood and blood-forming organs and certain disorders involving the immune mechanism
CPT/HCPCS: 36415; 80053; 80061; 83036; 84153; 84443; 85025